=== PATIENT | male | born 1985 | race Caucasian/White ===

== ENCOUNTER 2021-09-29 13:54 | Day surgery (SDC) | payer OTHER, SELFPAY ==
[2021-09-29] VITALS (12 sets, daily range): BP systolic 118–133; BP diastolic 62–87; PULSE 87–101; RESP 14–20; TEMP 36.6–37.3; O2SAT 89–100; BMI 22.3; BMI 23.0
--- NOTE | 2021-09-29 14:08 | ED_ITS ---
HPI - General Adult General Chief complaint: General Medical Stated complaint: esophageal FB by food per ems Time Seen by Provider: 09/29/21 14:06 Source: patient Mode of arrival: EMS Limitations: no limitations History of Present Illness HPI narrative: ate a piece of large pork at restaurant, happened one time in past at home resolved after punching himself in the throat complaint: esophageal foreign body Onset (ago): minute(s) (45) Location: mouth (throat) Radiation: non-radiation Severity: moderate Quality: aching Relieving factors: none Exacerbating factors: other (swallowing) Associated symptoms: other (cannot swallow tolerate saliva, no issues with breathing) Treatments prior to arrival: none Related Data Home Medications Medication Instructions Recorded Confirmed No Known Home Meds 09/29/21 09/29/21 Allergies Allergy/AdvReac Type Severity Reaction Status Date / Time Penicillins Allergy Unknown Verified 09/29/21 14:09 sulfamethoxazole Allergy Unknown Verified 09/29/21 14:09 [From Bactrim] trimethoprim [From Bactrim] Allergy Unknown Verified 09/29/21 14:09 Review of Systems Review of Systems: Constitutional : No Fever, No Chills ENT/Mouth : No sore throat, No Rhinorrhea, pos throat fullness Eyes: No Eye Pain, No Swelling, No Redness Cardiovascular : No Chest Pain, No SOB Respiratory : No Cough, No Sputum, No Wheezing Gastrointestinal : No Nausea, No Vomiting, No Diarrhea Genitourinary : No Dysuria, No Urinary Frequency, No Hematuria, Musculoskeletal : No joint pain, No Myalgias, No Joint Swelling Skin : No Skin Lesions, No rash Neuro : No Weakness, No Numbness, No Dizziness, No Headache All other systems reviewed and are negative [facility] Past Medical History Attestation statement: The following information was validated with the patient. Medical History No pertinent past medical history Social History Social History Alcohol intake: current Alcohol intake frequency: a few times a week Patient Tobacco Use Status: Never used Tobacco Use of substances other than those prescribed or required for medical reasons: Yes Are you DNR?: No Advance Directives: No Advance Directives Information Provided: No Physical Exam ED Vital Signs: Vital Signs - 24 hr 09/29/21 14:09 09/29/21 14:26 09/29/21 16:02 Temperature 98.3 F 99.1 F Pulse Rate 87 95 98 Respiratory Rate 18 18 20 Blood Pressure 129/80 124/64 133/75 Pulse Oximetry 99 98 97 Oxygen Delivery Method Room Air Room Air Room Air Oxygen Flow Rate 09/29/21 17:18 09/29/21 17:23 09/29/21 17:33 Temperature 98.3 F Pulse Rate 101 H 100 89 Respiratory Rate 14 14 16 Blood Pressure 124/66 125/70 127/70 Pulse Oximetry 96 98 93 Oxygen Delivery Method Simple Mask Simple Mask Nasal Cannula Oxygen Flow Rate 6 6 3 09/29/21 17:28 09/29/21 17:50 09/29/21 17:48 Temperature Pulse Rate 89 89 87 Respiratory Rate 14 18 18 Blood Pressure 127/77 123/69 Pulse Oximetry 93 97 Oxygen Delivery Method Nasal Cannula Nasal Cannula Oxygen Flow Rate 3 3 09/29/21 18:03 09/29/21 18:18 Temperature 97.8 F Pulse Rate 90 89 Respiratory Rate 18 18 Blood Pressure 118/79 126/62 Pulse Oximetry 89 L 94 Oxygen Delivery Method Room Air Room Air Oxygen Flow Rate BMI result Body Mass Index 23.0 Appearance: Alert. Oriented X3. Mild acute distress. Anxious Eyes: Pupils equal, round and reactive to light. ENT: Pharynx normal. no signs of food bolus, pharynx is clear, voice normal, cannot swallow saliva, clear saliva in emesis bag Neck: Normal inspection. Neck supple. no stridor CVS: Normal heart rate and rhythm. Pulses normal. Respiratory: No respiratory distress. Breath sounds normal. Abdomen: Soft and nontender. Skin: Skin warm and dry. Normal skin color. Normal skin turgor. Extremities: No lower extremity edema. No calf ttp Neuro: Oriented X 3. No motor deficit. No sensory deficit. Course Course Course Narrative: message sent to Dr. Jurado failed glucagon Medical Decision Making MDM Narrative Medical decision making narrative: 36 yo male with hx of prior food bolus impaction resolved at home - ate pork 45 minutes prior to arrival now with esopageal food bolus impaction. He has no airway issues, cannot swallow his saliva. He is not on blood thinners. No resp issues. Will obtain basic labs and attempt glucagon. If he fails will discuss with GI. Lab Data Result diagrams: 09/29/21 14:18 09/29/21 14:18 Labs: Lab Results 09/29/21 09/29/21 09/29/21 Range/Units 14:18 14:18 14:18 WBC 7.0 (4.8-10.8) X10*3/uL RBC 5.02 (4.60-5.80) X10*6/uL Hgb 15.4 (14.0-18.0) g/dl Hct 45.5 (42.0-52.0) % MCV 90.6 (80.0-98.0) fL MCH 30.7 (27.0-33.0) pg MCHC 33.8 (31.0-36.0) g/dl RDW 12.4 (11.0-16.0) % Plt Count 221 (160-400) X10*3/uL MPV 8.6 L (9.4-12.4) fL Immature Gran % (Auto) 0.3 (0.0-0.4) % Neut % (Auto) 60.4 (45-73) % Lymph % (Auto) 22.7 (20-40) % [place] % (Auto) 10.1 (2-11) % Eos % (Auto) 5.9 H (0-4) % Baso % (Auto) 0.6 (0-2) % Lymph # (Auto) 1.6 (1.2-4.9) X10*3/uL [place] # (Auto) 0.7 (0.1-1.2) X10*3/uL Eos # (Auto) 0.4 (0.0-0.4) X10*3/uL Baso # (Auto) 0.0 (0.0-0.2) X10*3/uL Abs Immat Gran (auto) 0.02 (0.00-0.03) X10*3/uL Absolute Neuts (auto) 4.2 (2.0-8.3) x10*3/uL Absolute Nucleated RBC 0.000 (0.0-0.012) X10*3/uL Nucleated RBC % (auto) 0.0 (0.0-0.2) /100WBC PT 11.5 (9.9-13.0) SEC INR 1.0 (0.9-1.1) Sodium 139 (135-145) mmol/L Potassium 3.9 (3.3-5.1) mmol/L Chloride 105 (96-108) mmol/L Carbon Dioxide 22 (22-29) mmol/L Anion Gap 16 (12-20) BUN 11 (9-16) mg/dL Creatinine 1.26 (0.5-1.4) mg/dL Estim Creat Clear Calc 81.5 Estimated GFR > 60 Random Glucose 103 (60-115) mg/dL Calcium 9.7 (8.4-10.2) mg/dL COVID-19 (JAKE) (Negative) COVID-19 Clin Com 09/29/21 Range/Units 14:18 WBC (4.8-10.8) X10*3/uL RBC (4.60-5.80) X10*6/uL Hgb (14.0-18.0) g/dl Hct (42.0-52.0) % MCV (80.0-98.0) fL MCH (27.0-33.0) pg MCHC (31.0-36.0) g/dl RDW (11.0-16.0) % Plt Count (160-400) X10*3/uL MPV (9.4-12.4) fL Immature Gran % (Auto) (0.0-0.4) % Neut % (Auto) (45-73) % Lymph % (Auto) (20-40) % [place] % (Auto) (2-11) % Eos % (Auto) (0-4) % Baso % (Auto) (0-2) % Lymph # (Auto) (1.2-4.9) X10*3/uL [place] # (Auto) (0.1-1.2) X10*3/uL Eos # (Auto) (0.0-0.4) X10*3/uL Baso # (Auto) (0.0-0.2) X10*3/uL Abs Immat Gran (auto) (0.00-0.03) X10*3/uL Absolute Neuts (auto) (2.0-8.3) x10*3/uL Absolute Nucleated RBC (0.0-0.012) X10*3/uL Nucleated RBC % (auto) (0.0-0.2) /100WBC PT (9.9-13.0) SEC INR (0.9-1.1) Sodium (135-145) mmol/L Potassium (3.3-5.1) mmol/L Chloride (96-108) mmol/L Carbon Dioxide (22-29) mmol/L Anion Gap (12-20) BUN (9-16) mg/dL Creatinine (0.5-1.4) mg/dL Estim Creat Clear Calc Estimated GFR Random Glucose (60-115) mg/dL Calcium (8.4-10.2) mg/dL COVID-19 (JAKE) Negative (Negative) COVID-19 Clin Com See Note Critical Care Time Critical Care Time Critical Care Time: Yes Total Critical Care Time: 35 Attestation: IVF, medical consult, admission to short stay surgery I attest to this time spent taking care of the patient Discharge Plan Discharge Clinical Impression: Food impaction of esophagus Qualifiers: Encounter type: initial encounter Qualified Code(s): T18.128A - Food in esophagus causing other injury, initial encounter Patient Disposition: Home, Self-Care
[2021-09-29 14:22] LABS: MANUAL DIFF FLAG NO
[2021-09-29 14:29] LABS: Basophils Percent Auto 0.6 % (0-2); Eosinophils Absolute Auto 0.4 X10*3/uL (0.0-0.4); Eosinophils Percent Auto 5.9 % (0-4); Hematocrit 45.5 % (42.0-52.0); Hemoglobin 15.4 g/dl (14.0-18.0); Imm Gran Abs Auto 0.02 X10*3/uL (0.00-0.03); Imm Gran Pct Auto 0.3 % (0.0-0.4); Lymphocytes Absolute Auto 1.6 X10*3/uL (1.2-4.9); Lymphocytes Percent Auto 22.7 % (20-40); Mean Corpuscular HGB Conc 33.8 g/dl (31.0-36.0); Mean Corpuscular Hemoglobin 30.7 pg (27.0-33.0); Mean Corpuscular Volume 90.6 fL (80.0-98.0); Mean Platelet Volume 8.6 fL (9.4-12.4); Monocytes Absolute Auto 0.7 X10*3/uL (0.1-1.2); Monocytes Percent Auto 10.1 % (2-11); Neutrophils Absolute Auto 4.2 x10*3/uL (2.0-8.3); Neutrophils Percent Auto 60.4 % (45-73); Platelet Count 221 X10*3/uL (160-400); Red Blood Count 5.02 X10*6/uL (4.60-5.80); Red Cell Distribution Width 12.4 % (11.0-16.0)
[2021-09-29 14:30] LABS: Prothrombin Time 11.5 SEC (9.9-13.0)
[2021-09-29 14:36] LABS: Anion Gap 16 (12-20); Blood Urea Nitrogen 11 mg/dL (9-16); Calcium 9.7 mg/dL (8.4-10.2); Carbon Dioxide 22 mmol/L (22-29); Chloride 105 mmol/L (96-108); Creatinine Clr Calc Pharmacy 81.5; Estimated Glomerular Filt Rate > 60; Glucose Random 103 mg/dL (60-115); Potassium 3.9 mmol/L (3.3-5.1); Sodium 139 mmol/L (135-145)
--- NOTE | 2021-09-29 14:43 | PM.GICN ---
History of Present Illness Data of Consult Service Date: 09/29/21 Requesting physician: Alla Sepulveda Primary Care Provider: Alma Delia Samaniego MD HPI Reason for consult: Dysphagia, food impaction 36 YM came to [facility] today with dysphagia after eating a large piece of pork: HPI narrative: ate a piece of large pork at restaurant, happened one time in past at home resolved after punching himself in the throat complaint: esophageal foreign body Onset (ago): minute(s) (45) Location: mouth (throat) Radiation: non-radiation Severity: moderate Quality: aching Relieving factors: none Exacerbating factors: other (swallowing) Associated symptoms: other (cannot swallow tolerate saliva, no issues with breathing) Treatments prior to arrival: none Pt gives a hx of intermittent GERD symptoms with dysphagia to solid food over the past several yrs. Pt reports one previous episode of food impaction a year ago which resolved with pt spitting the food out without any intervention. An hour prior to arrival pt ate a piece of pork (1st meal of the day) and a piece got stuck. He has been unable to swallow liquids or saliva since then. Pt denies smoking and admits to drinking 4 to 5 alcoholic drinks per week He works in IT at [employer] Pt denies any family hx of esophageal problems. He denies any cardiac or pulmonary problems, loud snoring or sleep apnea. Pt admits to having surgery for a rotator cuff tear several yrs ago and had issues recovering from anesthesia (? prolonged recovery) Review of Systems Review of Systems: Constitutional : No Fever, No Chills ENT/Mouth : No sore throat, No Rhinorrhea, pos throat fullness Eyes: No Eye Pain, No Swelling, No Redness Cardiovascular : No Chest Pain, No SOB Respiratory : No Cough, No Sputum, No Wheezing Gastrointestinal : No Nausea, No Vomiting, No Diarrhea Genitourinary : No Dysuria, No Urinary Frequency, No Hematuria, Musculoskeletal : No joint pain, No Myalgias, No Joint Swelling Skin : No Skin Lesions, No rash Neuro : No Weakness, No Numbness, No Dizziness, No Headache All other systems reviewed and are negative PMFSH Past Medical History Medical History No pertinent past medical history Social History Social History Alcohol intake: current Alcohol intake frequency: a few times a week Patient Tobacco Use Status: Never used Tobacco Use of substances other than those prescribed or required for medical reasons: Yes Are you DNR?: No Advance Directives: No Advance Directives Information Provided: No Meds Allergies Allergy/AdvReac Type Severity Reaction Status Date / Time Penicillins Allergy Unknown Verified 09/29/21 14:09 sulfamethoxazole Allergy Unknown Verified 09/29/21 14:09 [From Bactrim] trimethoprim [From Bactrim] Allergy Unknown Verified 09/29/21 14:09 Active Medications: Current Medications Sodium Chloride (Ns) 1,000 mls @ 999 mls/hr IV .Q1H1M ANNA Stop: 09/29/21 15:45 Home Medications Medication Instructions Recorded Confirmed Last Taken Type No Known Home Meds 09/29/21 09/29/21 Unknown History Physical Exam Vital Signs: Vital Signs: Last Vital Signs Temp 98.3 F 09/29/21 14:09 Pulse 95 09/29/21 14:26 Resp 18 09/29/21 14:26 BP 124/64 09/29/21 14:26 Pulse Ox 98 09/29/21 14:26 O2 Del Method 09/29/21 14:26 BMI result Body Mass Index 22.3 Const: General: healthy appearing, anxious and other (repeatedly spitting saliva into the emesis back) Nutritional Appearance: average body habitus Orientation/consciousness: patient oriented x3 Limitations: no limitations HEENT: Head: Yes normal to inspection Ears: hearing grossly normal bilaterally Mouth: Normal oral and palatal mucosa present Eyes: Sclerae: sclerae normal Pupils: Equal, round and reactive pupils present Neck: Neck: Yes normal visual inspection Chest: Chest palpation & inspection: normal inspection of the chest Resp: Effort & Inspection: normal respiratory effort Auscultation: clear to auscultation bilaterally Cardio: Palpation: normal PMI Rate: regular rate Rhythm: regular rhythm Heart sounds: S1 normal heart sound present, S2 normal heart sound present and no murmurs GI: Palpation (GI): Soft to palpation, nontender and No hepatosplenomegaly present Auscultation: normal bowel sounds Rectal Exam - Male: Yes deferred Skin: General skin exam: no rashes or lesions noted Neuro: General: patient oriented x3, gait normal and moves all extremities Cranial nerves: Yes Equal, round and reactive pupils present Psych: Appearance: grossly normal Mental Status: mental status grossly normal Results Labs CBC & Chem 7: 09/29/21 14:18 09/29/21 14:18 Labs: Short CBC 09/29/21 Range/Units 14:18 WBC 7.0 (4.8-10.8) X10*3/uL Hgb 15.4 (14.0-18.0) g/dl Hct 45.5 (42.0-52.0) % Plt Count 221 (160-400) X10*3/uL BMP 09/29/21 14:18 Sodium 139 Potassium 3.9 Chloride 105 Carbon Dioxide 22 BUN 11 Creatinine 1.26 Calcium 9.7 Assessment and Plan (1) Food impaction of esophagus: Qualifiers: Encounter type: initial encounter Qualified Code(s): T18.128A - Food in esophagus causing other injury, initial encounter Status: Acute Plan 36 year old healthy male with hx of GERD and intermittent dysphagia to solid food over the past several yrs came to [facility] with meat impaction. Pt reports one previous episode of food impaction a year ago which resolved with pt spitting the food out without any medical intervention. Pt's symptoms can be due to esophageal stricture, EOE or esophageal motility disorder. RECOMMENDATIONS: 1. Proceed with urgent EGD today - procedure and potential complications including bleeding, perforation, reaction to anesthetics and aspiration were reviewed with the patient. Procedures Date of Service Date of Service: 09/29/21
[2021-09-29 14:44] LABS: COVID-19 Test Negative (Negative); IDNOW Serial# 9DB6401D
--- NOTE | 2021-09-29 15:41 | P.CONAN_ITS ---
HPI - Anesthesia Eval Consult details Narrative: 36 M for EGD . Patient with food impaction anxiety , depression PMFSH Active Problems Active Problems: All Active Problems (Updated 09/29/21 @ 14:39 by Alla Sepulveda DO) Food impaction of esophagus (Acute) Past Medical History Medical History No pertinent past medical history Family History Family history of problems with anesthesia: No Surgical History History of Problems with Anesthesia: No Social History Social History Alcohol intake: current Alcohol intake frequency: a few times a week Patient Tobacco Use Status: Never used Tobacco Use of substances other than those prescribed or required for medical reasons: Yes Are you DNR?: No Advance Directives: No Advance Directives Information Provided: No Meds Allergies Allergy/AdvReac Type Severity Reaction Status Date / Time Penicillins Allergy Unknown Verified 09/29/21 14:09 sulfamethoxazole Allergy Unknown Verified 09/29/21 14:09 [From Bactrim] trimethoprim [From Bactrim] Allergy Unknown Verified 09/29/21 14:09 Active Medications: Current Medications Sodium Chloride (Ns) 1,000 mls @ 999 mls/hr IV .Q1H1M ANNA Stop: 09/29/21 15:45 Exam Exam Date and Time: September 29, 2021 1541 Height,Weight and Vital Signs: Height 5 ft 11 in Weight 72.575 kg Last Vital Signs Temp 98.3 F 09/29/21 14:09 Pulse 95 09/29/21 14:26 Resp 18 09/29/21 14:26 BP 124/64 09/29/21 14:26 Pulse Ox 98 09/29/21 14:26 O2 Del Method 09/29/21 14:26 Pertinent Lab Results Pertinent Lab Results: Laboratory Tests 09/29/21 09/29/21 09/29/21 14:18 14:18 14:18 WBC 7.0 RBC 5.02 Hgb 15.4 Hct 45.5 MCV 90.6 MCH 30.7 MCHC 33.8 RDW 12.4 Plt Count 221 MPV 8.6 L Immature Gran % (Auto) 0.3 Neut % (Auto) 60.4 Lymph % (Auto) 22.7 [place] % (Auto) 10.1 Eos % (Auto) 5.9 H Baso % (Auto) 0.6 Lymph # (Auto) 1.6 [place] # (Auto) 0.7 Eos # (Auto) 0.4 Baso # (Auto) 0.0 Abs Immat Gran (auto) 0.02 Absolute Neuts (auto) 4.2 Absolute Nucleated RBC 0.000 Nucleated RBC % (auto) 0.0 PT 11.5 INR 1.0 Sodium 139 Potassium 3.9 Chloride 105 Carbon Dioxide 22 Anion Gap 16 BUN 11 Creatinine 1.26 Estim Creat Clear Calc 81.5 Estimated GFR > 60 Random Glucose 103 Calcium 9.7 COVID-19 (JAKE) COVID-19 Clin Com 09/29/21 14:18 WBC RBC Hgb Hct MCV MCH MCHC RDW Plt Count MPV Immature Gran % (Auto) Neut % (Auto) Lymph % (Auto) [place] % (Auto) Eos % (Auto) Baso % (Auto) Lymph # (Auto) [place] # (Auto) Eos # (Auto) Baso # (Auto) Abs Immat Gran (auto) Absolute Neuts (auto) Absolute Nucleated RBC Nucleated RBC % (auto) PT INR Sodium Potassium Chloride Carbon Dioxide Anion Gap BUN Creatinine Estim Creat Clear Calc Estimated GFR Random Glucose Calcium COVID-19 (JAKE) Negative COVID-19 Clin Com See Note Airway Mallampati Class: III TM Dist: >3cm Neck ROM: Full Loose/Missing/Broken Teeth: Yes (chipped teeth ) Heart: S1, S2 Lungs: b/l breath sounds Assessment and Plan Assessment Anesthesia Assessment: Anesthesia Plan Discussed and Chart Reviewed Final Anesthetic Review Family History of Problems with Anesthesia: No History of Problems with Anesthesia: No NPO: No ASA Class: II and Emergency Final Preanesthetic Review: Meds/Allgs Chart Reviewed, Consent Obtained/Reviewed and Anes Risks/Benef Reviewed Patient Risk: High Procedure Risk: Intermediate Anesthetic Plan Anesthetic Plan: GA Disposition: Standard PACU
--- NOTE | 2021-09-29 15:44 | PC.NURSE ---
rn to rn with Short stay at bedside in ED. Pt brought to OR for upper endo. Aware of plan of care.
--- NOTE | 2021-09-29 16:57 | PM.OP ---
Brief Operative Note Date of Service: 09/29/21 Pre-op diagnosis: Dysphagia, food impaction Post-op diagnosis: same Procedure: FLEXIBLE TRANSORAL UPPER GASTROINTESTINAL ENDOSCOPY WITH BIOPSIES AND FOREIGN BODY REMOVAL Consent: Indications for the procedure and potential complications of bleeding, perforation, reaction to medications and missed diagnosis were discussed with the patient and informed consent was obtained. Instrument: Olympus GIF H 190 mid size upper endoscope Monitoring: Vital signs and clinical assessment, continuous EKG monitoring, Pulse oximetry, Carbon Dioxide monitoring and blood pressure monitoring were done throughout the procedure. Procedure: The patient was placed in the left lateral decubitis position and pre-procedure medications were administered and a bite block was placed. The endoscope was inserted into the mouth and advanced under direct vision to the third part of duodenum. A careful inspection was made as the upper endoscope was withdrawn including a retroflexed examination of the proximal stomach; Findings and interventions are described below. Findings: Larynx: ET tube in place Esophagus: A large piece of food bolus/meat was seen impacted in the mid esophagus at 25 cms. Food bolus was removed piecemeal with the help of a tri-pronged polyp grabber. Remaining food bolus was pushed into the stomach. Circular folds in the esophagus - biopsies were obtained from proximal esophagus to check for EOE. GE junction at 42 cms. No esophagitis or Cummins's. Stomach: Mild gastric erythema with moderate amount of food in the fundus of the stomach. Grade 2 flap valve on retroflexed examination of the cardia. Duodenum: Normal bulb and descending duodenum Intervention: Biopsies as noted above Impression and Post Procedure Diagnosis: Endoscopy Findings: ESOPHAGUS: A large piece of food bolus/meat was seen impacted in the mid esophagus at 25 cms. Food bolus was removed piecemeal with the help of a tri-pronged polyp grabber. Remaining food bolus was pushed into the stomach. Circular folds in the esophagus - biopsies were obtained from proximal esophagus to check for EOE. STOMACH: Mild gastric erythema with moderate amount of food in the fundus of the stomach. Plan: Await pathology results If patient continues to have dysphagia, further evaluation with a barium swallow and repeat EGD with esophageal dilation in 6 to 8 weeks. Above findings were reviewed with the patient and GERD and EOE handouts were given in the discharge area Surgeon: Elijah Jurado MD Anesthesia: GETA (Ailyn Cervantes CRNA) Was an Advanced Manufacturing Consultant used for this Procedure?: Yes Advanced Manufacturing Consultant: Arely Goodrich Estimated blood loss (mL): 3 Pathology: other (a. proximal esophageal bx r/o EOE) Condition: stable Disposition: PACU
--- NOTE | 2021-09-29 17:06 | P.OP_ITS ---
Operative Note Operative Note Date of Service: 09/29/21 Narrative: Pre-op diagnosis: Dysphagia, food impaction Post-op diagnosis:?same Procedure: FLEXIBLE TRANSORAL UPPER GASTROINTESTINAL ENDOSCOPY WITH BIOPSIES AND FOREIGN BODY REMOVAL Consent:?Indications for the procedure and potential complications of bleeding, perforation, reaction to medications and missed diagnosis were discussed with the patient and informed consent was obtained. Instrument:?Olympus GIF H 190 mid size upper endoscope Monitoring: Vital signs and clinical assessment, continuous EKG monitoring, Pulse oximetry, Carbon Dioxide monitoring and blood pressure monitoring were done throughout the procedure. Procedure:?The patient was placed in the left lateral decubitis position and pre-procedure medications were administered and a bite block was placed. The endoscope was inserted into the mouth and advanced under direct vision to the third part of duodenum. A careful inspection was made as the upper endoscope was withdrawn including a retroflexed examination of the proximal stomach; Findings and interventions are described below. Findings: Larynx:? ET tube in place Esophagus: A large piece of food bolus/meat was seen impacted in the mid esophagus at 25 cms.? Food bolus was removed piecemeal with the help of a tri- pronged polyp grabber. Remaining food bolus was pushed into the stomach. Circular folds in the esophagus - biopsies were obtained from proximal esophagus to check for EOE.? GE junction at 42 cms. No esophagitis or Cummins's. Stomach: Mild gastric erythema with moderate amount of food in the fundus of the stomach. Grade 2 flap valve on retroflexed examination of the cardia. Duodenum: Normal bulb and descending duodenum Intervention: Biopsies as noted above Impression and Post Procedure Diagnosis: Endoscopy Findings: ESOPHAGUS:? A large piece of food bolus/meat was seen impacted in the mid esophagus at 25 cms.? Food bolus was removed piecemeal with the help of a tri- pronged polyp grabber. Remaining food bolus was pushed into the stomach. Circular folds in the esophagus - biopsies were obtained from proximal esophagus to check for EOE. STOMACH: Mild gastric erythema with moderate amount of food in the fundus of the stomach. Plan: Await pathology results Repeat EGD in 6 to 8 weeks for dilation if pt continues to have dysphagia Above findings were reviewed with the patient and GERD and EOE handouts were given in the discharge area Surgeon: Elijah Jurado MD Anesthesia:?RENAY (Ailyn Cervantes CRNA) Was an Wrap Knitting Machine Operator used for this Procedure?:?Yes Wrap Knitting Machine Operator:?Arely Goodrich Estimated blood loss (mL):?3 Pathology:?other (a. proximal esophageal bx r/o EOE) Condition:?stable Disposition:?PACU
[2021-09-29] MEDS: Albuterol/Iprat 2.5/0.5MG 3 ML AMPUL.NEB 1.5 ML INHALE (17:50)
--- NOTE | 2021-09-29 22:06 | PHA.MEDREC ---
Pharmacy Consult ? Medication Reconciliation Pharmacy has completed the medication reconciliation.
== END 2021-09-29 17:55 | disposition home or self-care (01) ==
LOC: HO.ED 17:10 → HO.SSS 17:50
PROVIDERS: Emergency Provider Emergency Medicine; PCP Pediatrics; Visit Provider Internal Medicine Gastroenterology
PROC: 0DJ08ZZ Inspection of Upper Intestinal Tract, Via Natural or Artificial Opening Endoscopic (ICD-10-PCS; CPT 43235; principal; 2021-09-29 15:00)
DX: T18.128A Food in esophagus causing other injury, initial encounter (principal); R13.10 Dysphagia, unspecified; K20.80 Other esophagitis without bleeding; X58.XXXA Exposure to other specified factors, initial encounter; Y93.89 Activity, other specified; Y92.511 Restaurant or cafe as the place of occurrence of the external cause; Y99.8 Other external cause status; Z88.0 Allergy status to penicillin; Z88.2 Allergy status to sulfonamides; Z20.822 Contact with and (suspected) exposure to COVID-19
CPT/HCPCS: 43247; 43239; 80048; 85025; 85610; 87635; 88305; 94640; 96360; 96374; 99281; 99284; J1100; J1610; J2250; J3010